=== PATIENT | male | born 1950 | race Caucasian/White ===

== ENCOUNTER 2017-01-31 03:31 | Emergency (ER) | payer MEDICARE, BC ==
[~2017-01-31] VITALS: Ht 177.8 cm; Wt 76.2 kg
--- NOTE | 2017-01-31 03:45 | NUR ---
TO BED 6 A 66 YO MALE PATIENT BB FAMILY; HEADACHE SINCE 11PM. PATIENT IS AAOX4, NAD NOTED. VSS. AMBULATORY WITH STEADY GAIT. COMFORT MEASURES RENDERED. AT BEDSIDE.
--- NOTE | 2017-01-31 03:48 | NUR ---
DR LYNN AT BEDSIDE TO EVALUATE PATIENT.
[2017-01-31] MEDS ORDERED: METOCLOPRAMIDE HCL 10 MG/2 ML VIAL ONE (03:55)
[2017-01-31] MEDS ORDERED: SUMATRIPTAN SUCCINATE 6 MG/0.5 ML VIAL SQ ONE (03:55)
[2017-01-31] MEDS: SUMATRIPTAN SUCCINATE 6 MG/0.5 ML VIAL SQ ONE (04:00)
--- NOTE | 2017-01-31 04:01 | NUR ---
patient taken to radiology.
[2017-01-31] MEDS: IV NS 0.9% 1,000 ML BAG IV ONE (04:15)
--- NOTE | 2017-01-31 04:15 | NUR ---
STARTED A SALINE LOCK ON THE LAC G20.
[2017-01-31] MEDS: METOCLOPRAMIDE HCL 10 MG/2 ML VIAL IV ONE (04:17)
--- NOTE | 2017-01-31 04:18 | NUR ---
MEDICATED PATIENT ORDERED BY DR LYNN.
--- NOTE | 2017-01-31 04:52 | NUR ---
IV removed. Catheter intact and site benign. Pressure and 4x4 applied to site. No bleeding noted. Patient discharged to home in stable condition. Written and verbal after care instructions given. Patient verbalizes understanding of instruction. Patient is ambulatory with steady gait, accompanied by . No further complaints.
[2017-01-31 04:54] VITALS: BP 128/87
== END 2017-01-31 04:54 | disposition home or self-care (01) ==
LOC: ER 03:35
DX: G43.909 Migraine, unspecified, not intractable, without status migrainosus (principal); I10 Essential (primary) hypertension; I25.2 Old myocardial infarction
CPT/HCPCS: 70450; 96361; 96372; 96374; 99284; A4606; J2765; J3030; J7030; Z7610